=== PATIENT | male | born 1960 | race Caucasian/White ===

== ENCOUNTER → 2017-05-17 | Outpatient (CLI) | payer OTHER ==
[~2017-05-17] MED LIST: ALBUAER2 INH; ASCO10003 PO; CHOL400T PO; FEXO1TAB58 PO; GLC/500 PO; MISCTAB26 PO
--- NOTE | 2017-05-17 08:23 | DIAGNOSTIC IMAGING REPORT ---
(RENAL)RETROPERITON COMP HISTORY: 56 years-old Male PERSONAL HX OF RENAL CELL CANCER history of prior left kidney partial fracture august. COMPARISON: Renal ultrasound 12/01/2006 TECHNIQUE: Multiple real-time sonographic images of the kidneys and urinary bladder were obtained assessing grayscale appearance and color flow. FINDINGS: The right kidney measures 13.1 x 5.2 x 5.5 cm. There is an exophytic solid appearing lesion of the inferior pole right kidney, 1.9 x 1.8 x 1.4 cm demonstrating internal vascularity. Right kidney is otherwise unremarkable without renal calculi or hydronephrosis. Cortical medullary differentiation is preserved. Previously noted 3 cm cyst of the superior pole right kidney is not identified. Urinary bladder is unremarkable with bilateral ureteral jets documented. Left kidney measures 10.1 x 7.0 x 4.6 cm. Ovoid hypoechoic lesion of the superior pole left kidney suggests possible renal cyst or calyceal diverticulum, 2.1 x 1.6 x 1.3 cm. Scarring of the superior pole left kidney is noted, likely in the area of prior partial nephrectomy. IMPRESSION: 1. 1.9 cm solid appearing lesion of the inferior pole right kidney demonstrating internal vascularity is suspicious for possible neoplasm. 2. Scarring of the superior pole left kidney suggests prior partial nephrectomy. There is a 2.1 cm cyst or calyceal diverticulum of the superior pole left kidney. 3. Unremarkable sonographic appearance of the urinary bladder. The above report was generated using voice recognition software. It may contain grammatical, syntax or spelling errors. Electronically signed by: Jeff Moreno M.D. 05/17/2017 8:21 AM Dictated Date/Time: 05/17/2017 8:15 AM
== END | disposition home or self-care (01) ==
LOC: C.ULTR 07:34
PROVIDERS: ATTEND Urology
DX: Z85.528 Personal history of other malignant neoplasm of kidney (principal); N28.1 Cyst of kidney, acquired